=== PATIENT | female | born 1985 | race Caucasian/White ===

== ENCOUNTER → 2016-12-20 | Outpatient (CLI) | payer OTHER ==
--- NOTE | ~2016-12-20 | CT113 ---
[facility] A Service [facility] RADIOLOGY TEXT RESULTS PATIENT: CORTEZ JOYNER [facility] 81 UNIT #: [id number] AGE: [address]: Katya Huerta MD SEX: F ORDER DR: [id number] [place], [place] [address] [id number] O MR#: [id number] Acc #: [id number] NAME: CORTEZ JOYNER : 1985 SEX: F STUDY DATE/TIME: 12/20/2016 12:58 UNIT: [facility]AT ROOM: STUDY DESCRIPTION: CT Sinuses Wo Contrast Attending Physician: Katya Huerta M.D. Referring Physician: Katya Huerta M.D. Ordering Physician: Katya Huerta M.D. Primary Care Physician: Katya Huerta M.D. MEDICAL IMAGING REPORT This report is preliminary unless electronic signature is present EXAM Sinus CT no contrast, 12/20/2016 PROCEDURE Axial unenhanced sinus CT with multiplanar reformats. This CT exam was performed with one or more of the following radiation dose reduction techniques: automatic exposure control, adjustment of mA and/or kV according to patient size, and iterative reconstruction. COMPARISON Prior CT, 06/16/2012 HISTORY Sinus pain since October. FINDINGS The frontal sinuses are normally pneumatized and there is mild right frontal mucosal thickening. The ethmoid air cells are normally pneumatized, and normally aerated. The sphenoid chambers are normally pneumatized and aerated and there is left sphenoid dominance. The maxillary sinuses are normally pneumatized and aerated and the infundibula are patent. The nasal septum is bowed rightward anteriorly. The soft tissues are normal. IMPRESSION Right frontal sinus mucosal thickening. Dictated by... [facility] A Service [facility] RADIOLOGY TEXT RESULTS PATIENT: CORTEZ JOYNER [facility] 81 UNIT #: [id number] AGE: [address]: Katya Huerta MD SEX: F ORDER DR: Bernabe Orlando M.D. THIS IS AN ELECTRONICALLY VERIFIED REPORT Bernabe Orlando M.D. at 12/21/2016 4:50 PM FAN/jessica TD: 12/21/2016 15:50 JOB #: [id number] MEDICAL IMAGING REPORT Page 1 of 1 COPY
== END | disposition home or self-care (01) ==
LOC: CCAT 12:28
DX: J01.10 Acute frontal sinusitis, unspecified (principal); J01.00 Acute maxillary sinusitis, unspecified; J34.89 Other specified disorders of nose and nasal sinuses
CPT/HCPCS: 70486